=== PATIENT | female | born 1950 | race Caucasian/White ===

== ENCOUNTER 2018-08-18 12:23 | Outpatient (CLI) | payer MEDICARE ==
--- NOTE | 2018-08-18 13:58 | MRI ---
MRI Lower Ext Jt Lt WO Con History: Foot pain. Plantar fasciitis M 72.2 Comparison: None. Findings: Bones: Stress fracture of the third metatarsal base. There is edema involving the measuring cavity as well as the periosteum and cortex. Mild stress edema of the fourth metatarsal head. Visualized hindfoot appears intact. Soft tissues: Mild thickening of the central band plantar fascia with tear of the medial and lateral bands 1 cm from the calcaneal insertion upon the calcaneal enthesophyte. Mild adjacent soft tissue edema. Extensor tendons are intact. Flexor tendons are intact. Impression: 1. High grade tear of the medial and central bands plantar fascia retracted approximately 1 cm from t he calcaneal insertion. 2. Stress fracture of the third metatarsal base. There is edema of the medullary cavity, cortex, and periosteum. 3. Stress edema of the fourth metatarsal base.
== END 2018-08-18 12:24 | disposition home or self-care (01) ==
LOC: SCSMRI 12:23
PROVIDERS: ATTEND Podiatrist Foot & Ankle Surgery
DX: M72.2 Plantar fascial fibromatosis (principal); S96.912A Strain of unspecified muscle and tendon at ankle and foot level, left foot, initial encounter; M84.375A Stress fracture, left foot, initial encounter for fracture; R60.0 Localized edema

== ENCOUNTER 2024-11-27 10:04 | Outpatient (CLI) | payer MEDICARE, BC | END 2024-11-27 10:05 | disposition home or self-care (01) | LOC: SCSBT 10:04 | PROVIDERS: ATTEND Internal Medicine | DX: Z13.820 Encounter for screening for osteoporosis (principal); M81.0 Age-related osteoporosis without current pathological fracture; M85.89 Other specified disorders of bone density and structure, multiple sites | CPT/HCPCS: 77080 ==

== ENCOUNTER 2025-02-05 10:32 | Outpatient (CLI) | payer MEDICARE, BC ==
[2025-02-05 11:39] LABS: Estimated GFR - POC 92.0
== END 2025-02-05 10:33 | disposition home or self-care (01) ==
LOC: SCSMRI 10:32
PROVIDERS: ATTEND Otolaryngology Plastic Surgery within the Head & Neck
DX: H90.5 Unspecified sensorineural hearing loss (principal); J32.3 Chronic sphenoidal sinusitis
CPT/HCPCS: 36415; 70553; 76376; 82565